=== PATIENT | male | born 1980 | race Caucasian/White ===

== ENCOUNTER 2017-05-25 10:47 | Inpatient (IN) | payer MEDICAID ==
[~2017-05-25] VITALS: Ht 167.6 cm; Wt 98.1 kg
[~2017-05-25 10:47] MED LIST: APAP/HYDROCODON1 T13 PO; ECO81 PO; NAPROSYN500 MG PO; PRI20 PO; XAN1 PO; ZOC20 PO
[2017-05-25 12:10] LABS: BASOPHIL % 0.6 % (0-2); PLATELET COUNT 292 x10^3mcL (130-400); RED CELL DISTRIBUTION WIDTH 13.1 % (11.5-14.5)
[2017-05-25 12:29] LABS: CARBON DIOXIDE 30.3 mmol/L (21-32); CHLORIDE SERUM 102 mmol/L (98-107); GFR1 > 60 mL/min; GLUCOSE SERUM 96 mg/dL (74-106); POTASSIUM SERUM 4.3 mmol/L (3.5-5.1); SODIUM SERUM 138 mmol/L (136-145)
[2017-05-25 12:34] LABS: ALBUMIN 4.2 g/dL (3.4-5.0); ALKALINE PHOSPHATASE 83 U/L (46-116); ALT/SGPT 36 U/L (16-63); AST/SGOT 16 U/L (15-37); BILIRUBIN TOTAL 0.5 mg/dL (0.20-1.00)
[2017-05-25 12:38] LABS: TOTAL PROTEIN, SERUM 8.7 g/dL (6.4-8.2)
[2017-05-25 15:13] LABS: CHOLESTEROL/HDL RATIO 3.6; MAGNESIUM 2.1 mg/dL (1.8-2.4); PHOSPHOROUS 2.9 mg/dL (2.5-4.9)
[2017-05-25 15:16] LABS: FREE T4 0.85 ng/dL (0.76-1.46); FREE THYROXINE INDEX 2.2 ug/dL (1.4-4.5); T4(THYROXINE) 6.2 ug/dL (4.7-13.3)
[2017-05-25 15:41] VITALS: BP 134/98
[2017-05-25 18:05] VITALS: BP 121/76
[2017-05-25 18:21] LABS: microscopic required? NO
[2017-05-25 18:25] LABS: urine erythrocyte NEGATIVE (NEGATIVE)
[2017-05-25 18:53] LABS: AMPHETAMINE QUAL UR NONE DETECTED (NEG <=1000)
[2017-05-25 20:41] VITALS: BP 110/78
[2017-05-26 05:27] VITALS: BP 109/72
[2017-05-26 07:38] LABS: CALCIUM 9.2 mg/dL (8.5-10.1); CARBON DIOXIDE 28.5 mmol/L (21-32); CHLORIDE SERUM 101 mmol/L (98-107); CREATININE SERUM 1.1 mg/dL (0.7-1.3); GFR1 > 60 mL/min; GLUCOSE SERUM 99 mg/dL (74-106); MAGNESIUM 2.1 mg/dL (1.8-2.4); PHOSPHOROUS 3.3 mg/dL (2.5-4.9); POTASSIUM SERUM 4.2 mmol/L (3.5-5.1); SODIUM SERUM 138 mmol/L (136-145)
[2017-05-26 08:23] LABS: BASOPHIL % 0.5 % (0-2); PLATELET COUNT 272 x10^3mcL (130-400); RED CELL DISTRIBUTION WIDTH 13.6 % (11.5-14.5)
[2017-05-26 09:52] VITALS: BP 116/73
[2017-05-26 13:55] VITALS: BP 107/66
[2017-05-26 16:25] VITALS: BP 114/85
[2017-05-26] MEDS ORDERED: ZOLOFT50 MG PO (17:31)
[2017-05-26 17:50] VITALS: BP 114/85
== END 2017-05-26 18:14 | disposition home or self-care (01) | DRG 756 ==
LOC: ED 10:47 → EDBEDREQ 13:42 → DU 13:42
PROVIDERS: Emergency Medicine; ADMIT Family Medicine Sports Medicine
DX: F41.0 Panic disorder [episodic paroxysmal anxiety] (principal); E78.5 Hyperlipidemia, unspecified; F41.1 Generalized anxiety disorder; S83.207D Unspecified tear of unspecified meniscus, current injury, left knee, subsequent encounter; K43.2 Incisional hernia without obstruction or gangrene; E66.9 Obesity, unspecified; Z68.34 Body mass index [BMI] 34.0-34.9, adult; X58.XXXD Exposure to other specified factors, subsequent encounter
CPT/HCPCS: 83880; 84439; J7030; Q0092

== ENCOUNTER 2018-03-19 19:25 | Emergency (ER) | payer OTHER ==
[~2018-03-19] VITALS: Ht 167.6 cm; Wt 97.7 kg
[~2018-03-19 19:25] MED LIST changes: +ZOLOFT50 MG PO
[2018-03-19 22:12] VITALS: BP 126/88
== END 2018-03-19 22:12 | disposition home or self-care (01) ==
LOC: ED 19:25
DX: G89.29 Other chronic pain (principal); M25.512 Pain in left shoulder; M25.562 Pain in left knee; M25.561 Pain in right knee; E78.00 Pure hypercholesterolemia, unspecified
CPT/HCPCS: J1885; Q0092

== ENCOUNTER 2018-05-02 08:18 | Emergency (ER) | payer MEDICAID ==
[~2018-05-02] VITALS: Ht 165.1 cm; Wt 98.0 kg
[2018-05-02 08:25] VITALS: BP 146/104; Ht 165.1 cm; Wt 98.0 kg
== END 2018-05-02 09:56 | disposition home or self-care (01) ==
LOC: ED 08:18
DX: M25.562 Pain in left knee (principal); M25.572 Pain in left ankle and joints of left foot; F41.9 Anxiety disorder, unspecified; E78.00 Pure hypercholesterolemia, unspecified